=== PATIENT | female | born 1940 | race Caucasian/White ===

== ENCOUNTER → 2018-09-13 11:57 | Outpatient (CLI) | payer MEDICARE, OTHER, SELFPAY | PROVIDERS: Family Provider Internal Medicine; PCP Internal Medicine; Referring Provider Surgery; Visit Provider Surgery | DX: Z01.818 Encounter for other preprocedural examination (principal); C50.919 Malignant neoplasm of unspecified site of unspecified female breast ==

== ENCOUNTER 2020-06-24 07:40 | Outpatient (RCR) | payer MEDICARE, OTHER, SELFPAY | END 2020-06-24 23:59 | LOC: IMMUN 07:40 | PROVIDERS: PCP Internal Medicine; Referring Provider Family Medicine; Visit Provider Family Medicine | DX: Z23 Encounter for immunization (principal) | CPT/HCPCS: 0011A; 0012A ==

== ENCOUNTER 2020-09-14 21:50 | Emergency (ER) | payer MEDICARE, OTHER, SELFPAY ==
[2020-09-14 21:50] VITALS: BP 125/77; PULSE 86; RESP 18; TEMP 35.9; O2SAT 94; BMI 28.3
--- NOTE | 2020-09-14 22:08 | RAD_ITS ---
STUDY: X-RAY - RIGHT RADIUS AND ULNA REASON FOR EXAM: Female, 80 years old. BRUISING AND PAIN PROXIMAL FOREARM AFTER FALL TECHNIQUE: 2 view(s) of the forearm. COMPARISON: None. FINDINGS: There is no demonstrated soft tissue swelling. Normal visualized radius. Normal visualized ulna. There is no demonstrated acute fracture. RAD/Forearm 2 Views IMPRESSION: Normal x-ray examination of the radius and ulna. Electronically Signed: Frandy Krueger MD at 22:59 EDT , Service support ,
--- NOTE | 2020-09-14 22:20 | EDS_ITS ---
HPI History of Present Illness Chief Complaint: Laceration Onset/Context/Timing Location of pain/injuries: Left thigh Narrative Narrative: Patient presents with a laceration of the right forearm after a mechanical fall she was walking down the steps in her new shoes which caught and she caught her right hand. No other injuries. No head injury or loss of consciousness. PFSH PFS Home Medications [place]'s wort 300 mg PO DAILY 08/13/18 [History Last Taken Unknown] ginkgo biloba 120 mg PO DAILY 08/13/18 [History Last Taken Unknown] ginseng 100 mg PO DAILY 08/13/18 [History Last Taken Unknown] multivitamin 1 ea PO DAILY 08/13/18 [History Last Taken Unknown] Allergy/AdvReac Type Severity Reaction Status Date / Time No Known Allergies Allergy Verified 08/13/18 08:22 Social History Smoking Status: Former smoker ROS ROS ED ROS Narrative Past medical history: none Medications: Reviewed Social history: Noncontributory Review of systems: Musculoskeletal: Right forearm injury as in HPI Skin: Forearm laceration and contusion as in HPI Neurological: No weakness or paresthesias Hematologic: No easy bleeding or easy bruising EXAM Physical Exam Narrative Exam Narrative: Physical exam General: Patient does not appear in significant distress . Head: Normocephalic, Atraumatic Neck: No C-spine tenderness Cardiovascular: Regular rate, Regular rhythm Respiratory: No distress, CTA bilaterally Back: Nontender, Normal Inspection. Extremities: Right forearm reveals 2 small lacerations which just penetrate the dermis, there about 2 cm each. There is also some contusion in that region and very slight radial pain. Skin: As above Neurological: Normal strength and sensation Const Vital Signs: 09/14/20 21:50 Temperature 96.7 F L Temperature Source Temporal Pulse Rate 86 Respiratory Rate 18 Blood Pressure 125/77 H Blood Pressure Mean 93 Pulse Ox 94 Oxygen Delivery Method Room Air MDM MDM MDM Narrative Medical decision making narrative: Wounds were Steri-Stripped by the nurse. X-r ays unremarkable patient will be discharged in stable condition. Tetanus is up-to-date Discharge Plan Triage Chief Complaint: Laceration ED Provider: Torin Snyder Dx/Rx/DC Orders Clinical Impression: Forearm laceration, Contusion of forearm Instructions: ED Contusion, Upper Extremity, ED Laceration, Infected, Not Stitched Prescriptions: No Action multivitamin 1 EACH tablet 1 ea PO DAILY RF: 0 ginseng 100 MG capsule 100 mg PO DAILY RF: 0 [place]'s wort 300 MG capsule 300 mg PO DAILY RF: 0 ginkgo biloba 120 MG tablet 120 mg PO DAILY RF: 0 Primary Care Provider: Care Physician,No Primary Referrals: Care Physician,No Primary [Primary Care Provider] - 3-5 Days Disposition Disposition: Home, self care
[2020-09-14 23:28] VITALS: BP 128/78; PULSE 80; RESP 16; O2SAT 98
== END 2020-09-14 23:29 | disposition home or self-care (01) ==
PROVIDERS: Emergency Provider Emergency Medicine
DX: S51.811A Laceration without foreign body of right forearm, initial encounter (principal); Y93.01 Activity, walking, marching and hiking; Z87.891 Personal history of nicotine dependence
CPT/HCPCS: 73090; 99282

== ENCOUNTER 2021-02-28 10:17 | Emergency (ER) | payer MEDICARE, OTHER, SELFPAY ==
[2021-02-28 10:18] VITALS: BP 128/89; PULSE 84; RESP 16; TEMP 36.3; O2SAT 93; BMI 28.1
--- NOTE | 2021-02-28 10:29 | CT_ITS ---
STUDY: CT BRAIN WITHOUT CONTRAST REASON FOR EXAM: Female, 81 years old. injury RADIATION DOSAGE (If Supplied By Facility): CTDIvol = ( 44.99 ) mGy, DLP = ( 846.73 ) mGycm TECHNIQUE: Transaxial CT imaging of the brain was performed without administration of intravenous contrast material. Individualized dose optimization techniques were used for this CT. COMPARISON: None. FINDINGS: There is cerebral atrophy with widening of the extra-axial spaces and ventricular dilatation. There are areas of decreased attenuation within the white matter tracts of the supratentorial brain, consistent with microvascular disease changes. There is no intracranial hemorrhage. There are no findings of an acute ischemic infarction. Normal soft tissue structures. Normal visualized paranasal sinuses. CT/Brain/Head without Contrast IMPRESSION: Chronic involutional changes of the brain. Electronically Signed: Amanda Mina MD at 10:58 EST Tel , Service support ,
--- NOTE | 2021-02-28 10:30 | ED.VIS.FALL ---
HPI HPI - Fall History of Present Illness Chief Complaint: Fall Informant: patient and family Occured/Mechanism Occurred: Today Fall down steps #: 10 Pain/Injury Pain Location: face Quality of Pain: Aching Current Severity: Mild Maximum Severity: Mild Narrative Narrative: in a ponce in her shoe caught on the carpet causing her to fall.Patient presents with family after fall down approximately 10 steps at home. She was She is not on anticoagulants did not lose consciousness. She is complaining of mild pain to her right hand and pain across her nose. She denies headache, vision change, nausea, or vomiting. She denies neck pain. [facility] Medical History Back pain due to injury Hypothyroidism Multiple sclerosis Parkinson's disease Rheumatoid arthritis Stroke Home Medications [place]'s wort 300 mg PO DAILY 08/13/18 [History Last Taken Unknown] ginkgo biloba 120 mg PO DAILY 08/13/18 [History Last Taken Unknown] ginseng 100 mg PO DAILY 08/13/18 [History Last Taken Unknown] multivitamin 1 ea PO DAILY 08/13/18 [History Last Taken Unknown] levothyroxine 75 mcg PO DAILY 02/28/21 [History Last Taken Unknown] Allergy/AdvReac Type Severity Reaction Status Date / Time No Known Allergies Allergy Verified 02/28/21 10:21 Surgical History History of cholecystectomy Social History Smoking Status: Former smoker ROS ROS ED Constitutional Constitutional ED: Denies chills or fever(s) Eyes Eyes: Denies change in vision ENT ENT ED: Reports other Details: Pain across nasal bridge ; Denies sore throat Cardiovascular Cardiovascular: Denies chest pain Respiratory/Chest Respiratory/Chest: Denies cough or dyspnea Gastrointestinal Gastrointestinal: Denies abdominal pain, diarrhea, nausea or vomiting Genitourinary Genitourinary ED: Denies dysuria Musculoskeletal Musculoskeletal: Reports arthralgias; Denies back pain Integumentary Reports Abrasions Neurologic Neurologic: Denies headache(s), paresthesias or weakness Psychiatric Psychiatric: Denies anxiety or depression Allergic/Immunologic Allergic/Immunologic ED: Denies urticaria EXAM Physical Exam Const Vital Signs: 02/28/21 10:18 02/28/21 10:30 02/28/21 11:16 Temperature 97.3 F L Temperature Source Temporal Pulse Rate 84 89 Respiratory Rate 16 18 Respiratory Effort Normal Respiratory Depth Normal Respiratory Pattern Normal Blood Pressure 128/89 H Blood Pressure Mean 102 Pulse Ox 93 93 Oxygen Delivery Method Room Air Room Air Room Air Positive well nourished and well developed General Appearance ED: well developed HEENT HEENT Narrative: Superficial abrasion across the left distal lateral nose. Mild edema over the nasal bridge. Pupils equal and reactive. No tenderness over the zygoma Eyes PERRL and EOMs intact bilaterally Neck full ROM Neck Narrative: No C-spine tenderness Resp normal respiratory effort and clear to auscultation bilaterally Cardio regular rate and regular rhythm GI non-tender Palpation: soft Back/Spine Cervical Spine: Negative for cervical spine tenderness Thoracic Spine / Upper Back: Negative for thoracic spinal tenderness Extremity Extremity Narrative: Superficial abrasion to the right hand over the second metacarpal. No bony tenderness with full range of motion. Neuro oriented x3, CN's II-XII intact bilaterally, moves all extremities and no sensory deficits noted Sensorium / Orientation: alert Motor Exam: strength 5/5 throughout Psych mental status grossly normal MDM MDM MDM Narrative Medical decision making narrative: CT scan of the head was obtained. I did asked tech to scan down through nasal bridge. Radiography Diagnostic Testing: Clinical Impression(s) from Imaging Studies Brain CT 02/28/21 10:29 IMPRESSION: Chronic involutional changes of the brain. Electronically Signed: Amanda Mina MD at 10:58 EST Tel , Service support , ADDENDUM: 02/28/21 1116 Treatment and Re-Evaluation Comments:: CT scan unremarkable. No obvious fracture noted. Test results discussed with patient. Return instructions provided. Addendum: I was notified later by plumbing service technician that an addendum had been performed on the CT. Patient has nondisplaced nasal bone fractures. Nursing staff did call patient to notify of these findings. No significant change in management. Discharge Plan Triage Chief Complaint: Fall ED Provider: Yohana Duarte Dx/Rx/DC Orders Clinical Impression: Fall, Closed head injury, Contusion of nose Instructions: ED Mechanical Fall, ED Head Injury (Adult), ED Nasal Contusion Prescriptions: No Action multivitamin 1 EACH tablet 1 ea PO DAILY RF: 0 ginseng 100 MG capsule 100 mg PO DAILY RF: 0 [place]'s wort 300 MG capsule 300 mg PO DAILY RF: 0 ginkgo biloba 120 MG tablet 120 mg PO DAILY RF: 0 levothyroxine 75 mcg tablet 75 mcg PO DAILY RF: 0 Primary Care Provider: Katya Muñiz Referrals: Katya Muñiz, IRON AND STEEL WORK SUPERVISOR-C [Primary Care Provider] - As Needed Disposition Disposition: Home, Self Care Discharge Date/Time: 02/28/21 11:17
[2021-02-28 11:16] VITALS: PULSE 89; RESP 18; O2SAT 93
--- NOTE | 2021-02-28 12:51 | ED.RN ---
ATTEMPTED TO CALL TO INFORM OF ADDENDUM TO CT RESULT AND INFORM OF NON-DISPLACED NASAL FRACTURE. NO ANSWER AND VM BOX IS NOT SET UP TO LEAVE A MESSAGE
== END 2021-02-28 11:17 | disposition home or self-care (01) ==
PROVIDERS: Emergency Provider Emergency Medicine; PCP Nurse Practitioner Family
DX: S09.90XA Unspecified injury of head, initial encounter (principal); S00.33XA Contusion of nose, initial encounter; W10.9XXA Fall (on) (from) unspecified stairs and steps, initial encounter; Z87.891 Personal history of nicotine dependence
CPT/HCPCS: 70450; 99282

== ENCOUNTER 2022-01-06 18:36 | Emergency (ER) | payer MEDICARE, OTHER, SELFPAY ==
[2022-01-06 18:39] VITALS: BP 83/67; PULSE 97; RESP 16; TEMP 37.1; O2SAT 96; BMI 26.9
[2022-01-06 20:15] VITALS: BP 137/86; PULSE 88; RESP 16; O2SAT 94
--- NOTE | 2022-01-06 21:17 | EDS_ITS ---
HPI History of Present Illness Chief Complaint: Other, Pain/Inj Informant: patient Onset/Context/Timing Onset: Weeks (2) Context: Sudden Onset Timing: Intermittent Quality: Spasm, charley horse Location: Neck, bilateral legs, bilateral arms Worsened by: Sleeping, sitting Relieved by: Nothing Narrative Narrative: Patient presents with pain. Patient states it has been intermittent over the last 2 weeks. Patient states it feels like she has a giant charley horse. Patient states it starts in her neck and goes into both legs and both arms. Patient states it is worse whenever she wakes up in the morning. Patient states it is also worse with prolonged sitting. Patient states she feels like she has spasms in her arms and legs. Patient admits to an episode of nausea and vomiting today. Patient also admits to some pain in her back. [facility] Medical History Arthritis Breast cancer Hypothyroidism Stroke Home Medications [place] wort 300 mg capsule 300 mg PO DAILY 08/13/18 [History Last Taken Unknown] ginkgo biloba 120 mg tablet 120 mg PO DAILY 08/13/18 [History Last Taken Unknown] ginseng 100 mg capsule 100 mg PO DAILY 08/13/18 [History Last Taken Unknown] multivitamin 1 ea PO DAILY 08/13/18 [History Last Taken Unknown] levothyroxine 75 mcg tablet 75 mcg PO DAILY 02/28/21 [History Last Taken Unknown] calcium citrate 500 mg (2,376 mg) effervescent tablet 500 mg PO DAILY 01/06/22 [History Last Taken Unknown] cephalexin 500 mg capsule 500 mg PO Q6 #20 CAPSULES 01/06/22 [Rx Last Taken Unknown] cholecalciferol (vitamin D3) 125 mcg (5,000 unit) tablet (Vitamin D3) 125 mcg PO DAILY 01/06/22 [History Last Taken Unknown] cyanocobalamin (B12)-cobamamide 5,000 mcg-100 mcg sublingual lozenge (B12) 500 kiley sublingual 01/06/22 [History Last Taken Unknown] echinacea 400 mg capsule 400 mg PO DAILY 01/06/22 [History Last Taken Unknown] ferrous sulfate 325 mg (65 mg iron) tablet (Iron (ferrous sulfate)) 325 mg PO DAILY 01/06/22 [History Last Taken Unknown] josh root extract 50 mg tablet mg PO 01/06/22 [History Last Taken Unknown] goldenseal root 250 mg tablet 400 mg PO 01/06/22 [History Last Taken Unknown] yamil héctor (Centella asiatica) 441 mg capsule 950 PO 01/06/22 [History Last Taken Unknown] lutein 20 mg capsule 20 mg PO DAILY 01/06/22 [History Last Taken Unknown] tramadol 50 mg tablet 50 mg PO BID PRN Pain 01/06/22 [History Last Taken Unknown] vitamin E 400 unit tablet 45 mg PO DAILY 01/06/22 [History Last Taken Unknown] Allergy/AdvReac Type Severity Reaction Status Date / Time No Known Allergies Allergy Verified 01/06/22 18:41 Surgical History History of cholecystectomy Social History Smoking Status: Former smoker ROS ROS ED Constitutional Constitutional ED: Denies chills or fever(s) Eyes Eyes: Denies blurry vision or change in vision ENT ENT ED: Denies rhinorrhea or sore throat Cardiovascular Cardiovascular: Denies chest pain or palpitations Respiratory/Chest Respiratory/Chest: Denies cough or dyspnea Gastrointestinal Gastrointestinal: Reports nausea and vomiting Genitourinary Genitourinary ED: Denies dysuria or hematuria Musculoskeletal Musculoskeletal: Reports back pain and neck pain Integumentary Denies abscess or rash Neurologic Neurologic: Denies headache(s) or weakness Allergic/Immunologic Allergic/Immunologic ED: Denies mouth swelling or urticaria EXAM Physical Exam Const Vital Signs: 01/06/22 18:39 01/06/22 20:01 01/06/22 20:15 Temperature 98.8 F Temperature Source Temporal Pulse Rate 97 88 Respiratory Rate 16 16 Respiratory Effort Normal Respiratory Pattern Normal Blood Pressure 83/67 L 137/86 H Blood Pressure Mean 72 103 Pulse Ox 96 94 Oxygen Delivery Method Room Air Room Air Positive well nourished and well developed General Appearance ED: well developed and NAD HEENT Reports moist mucous membranes Neck supple and no JVD Neck Narrative: There is mild tenderness over the cervical paraspinal muscles. There is no bony crepitance or step-off. Range of motion was limited in all motions of the cervical spine secondary to pain and spasm. General: tenderness Resp normal respiratory effort and clear to auscultation bilaterally Cardio regular rate, regular rhythm and no murmurs GI normal to inspection, nondistended, normoactive bowel sounds and non-tender Palpation: soft Extremity normal to inspection Extremity Narrative: There is pain with active and passive range of motion of the left upper extremity. There is no deformity noted. There is no edema or ecchymosis. There is no evidence of any trauma. General Extremety ED: Negative for edema General Extremity: Negative for edema Neuro oriented x3, CN's II-XII intact bilaterally and no sensory deficits noted Sensorium / Orientation: alert Motor Exam: strength 5/5 throughout Psych mental status grossly normal Skin no rashes or lesions noted MDM MDM MDM Narrative Medical decision making narrative: CBC was within normal limits. Comprehensive metabolic profile was within normal limits. Lactate was normal. Total CK was normal. Urinalysis shows a leukocyte esterases of 500 with 10-25 white blood cells and 3+ bacteria. Urine culture wa s ordered. CT scan of the brain was obtained. There is no acute intracranial abnormality noted. This was interpreted by the radiologist and reviewed by myself. CT scan of the cervical spine was obtained. There are degenerative changes noted. There is no acute fracture or spondylolisthesis. This was interpreted by the radiologist and reviewed by myself. Patient was advised of her findings. Patient was given a dose of Keflex here. Patient was given a prescription for Keflex. Patient was instructed to drink plenty of fluids. Patient was instructed to follow-up with her primary care physician in 5 to 7 days. Patient understood and was agreeable with the plan. All questions were answered. Lab Data Attestation: I reviewed the patient's lab results. Labs: Laboratory Results - last 24 hr 01/06/22 01/06/22 01/06/22 22:00 22:00 22:00 WBC 7.5 RBC 4.35 Hgb 13.3 Hct 40.6 MCV 93.3 MCH 30.6 MCHC 32.8 RDW Std Deviation 43.7 RDW Coeff of Bharat 12.7 Plt Count 297 MPV 9.8 Immature Gran % (Auto) 0.300 Neut % (Auto) 57.3 Lymph % (Auto) 30.2 [place] % (Auto) 11.3 H Eos % (Auto) 0.5 Baso % (Auto) 0.4 Absolute Neuts (auto) 4.3 Absolute Lymphs (auto) 2.28 Nucleated RBC % 0 Sodium 139 Potassium 3.8 Chloride 102 Carbon Dioxide 26.0 Anion Gap 11 BUN 13 Creatinine 0.75 Estim Creat Clear Calc 42.00 Est GFR (MDRD) Af Amer 95 Est GFR (MDRD) Non-Af 79 BUN/Creatinine Ratio 17.3 Glucose 106 Lactic Acid 1.3 Calcium 10.5 H Total Bilirubin 0.60 AST 34 ALT 35 Alkaline Phosphatase 129 H Total Creatine Kinase 92 Total Protein 7.6 Albumin 3.7 Globulin 3.9 Albumin/Globulin Ratio 0.9 Urine Color Urine Clarity Urine pH Ur Specific [place] Urine Protein Urine Glucose (UA) Urine Ketones Urine Occult Blood Urine Nitrite Urine Bilirubin Urine Urobilinogen Ur Leukocyte Esterase Urine RBC Urine WBC Ur Squamous Epith Cells Urine Bacteria Urine Mucus 01/06/22 22:00 WBC RBC Hgb Hct MCV MCH MCHC RDW Std Deviation RDW Coeff of Bharat Plt Count MPV Immature Gran % (Auto) Neut % (Auto) Lymph % (Auto) [place] % (Auto) Eos % (Auto) Baso % (Auto) Absolute Neuts (auto) Absolute Lymphs (auto) Nucleated RBC % Sodium Potassium Chloride Carbon Dioxide Anion Gap BUN Creatinine Estim Creat Clear Calc Est GFR (MDRD) Af Amer Est GFR (MDRD) Non-Af BUN/Creatinine Ratio Glucose Lactic Acid Calcium Total Bilirubin AST ALT Alkaline Phosphatase Total Creatine Kinase Total Protein Albumin Globulin Albumin/Globulin Ratio Urine Color Yellow Urine Clarity Clear Urine pH 6.0 Ur Specific [place] 1.015 Urine Protein Negative Urine Glucose (UA) Normal Urine Ketones 15 H Urine Occult Blood 10 H Urine Nitrite Positive H Urine Bilirubin Negative Urine Urobilinogen Normal Ur Leukocyte Esterase 500 H Urine RBC 0-5 SEEN Urine WBC 10-25 SEEN Ur Squamous Epith Cells 0-5 SEEN Urine Bacteria 3+ Urine Mucus 0 SEEN Radiography Diagnostic Testing: Clinical Impression(s) from Imaging Studies Brain CT 01/06/22 21:20 IMPRESSION: Mild involutional changes. There is no acute intracranial pathology. There is no significant interval change. Electronically Signed: Aixa Albrecht MD at 23:02 EDT Reading Location ID and State: , Service support , Cervical Spine CT 01/06/22 21:22 IMPRESSION: Multilevel degenerative changes, as described above. There is straightening of the normal lordotic curve, a nonspecific finding, which may be due to positioning or which might be due to muscle spasm. Mild osteopenia. There is no acute displaced fracture or dislocation. Electronically Signed: Aixa Albrecht MD at 23:06 EDT Reading Location ID and State: , Service support , Discharge Plan Triage Chief Complaint: Other, Pain/Inj ED Provider: Rakesh Torres Dx/Rx/DC Orders Clinical Impression: Urinary tract infection, Muscle spasm Instructions: ED Cystitis Female Adult Prescriptions: New cephalexin [cephalexin] 500 MG capsule 500 mg PO Q6 Qty: 20 0RF No Action multivitamin 1 EACH tablet 1 ea PO DAILY ginseng 100 MG capsule 100 mg PO DAILY [place] wort 300 MG capsule 300 mg PO DAILY ginkgo biloba 120 MG tablet 120 mg PO DAILY levothyroxine 75 mcg tablet 75 mcg PO DAILY Gotu Héctor 441 mg Capsule 950 PO tramadol 50 mg Tablet 50 mg PO BID PRN (Reason: Pain) vitamin E 400 unit Tablet 45 mg PO DAILY cholecalciferol (vitamin D3) [Vitamin D3] 125 mcg (5,000 unit) Tablet 125 mcg PO DAILY goldenseal root 250 mg Tablet 400 mg PO echinacea 400 mg Capsule 400 mg PO DAILY Rx Instructions: administer with meals calcium citrate 500 mg Tablet, Effervescent 500 mg PO DAILY lutein 20 mg Capsule 20 mg PO DAILY Rx Instructions: give with meal/snack B12 5,000-100 mcg Lozenge 500 kiley SUBLINGUAL ferrous sulfate [Iron (ferrous sulfate)] 325 mg (65 mg iron) Tablet 325 mg PO DAILY josh root extract 50 mg Tablet PO Primary Care Provider: Katya Muñiz Referrals: Katya Muñiz, PROGRAMMER ANALYST CONSULTANT-C [Primary Care Provider] - 3-5 Days Disposition Disposition: Home, Self Care
--- NOTE | 2022-01-06 21:20 | CT_ITS ---
STUDY: CT BRAIN WITHOUT CONTRAST REASON FOR EXAM: Female, 82 years old. Headache RADIATION DOSAGE (If Supplied By Facility): CTDIvol = ( 44.99 ) mGy, DLP = ( 779.24 ) mGycm TECHNIQUE: Transaxial CT imaging of the brain was performed without administration of intravenous contrast material. Individualized dose optimization techniques were used for this CT. COMPARISON: CT brain noncontrast 02/28/2021 FINDINGS: Normal soft tissue structures. Normal calvarium. Normal size ventricles and extra-axial spaces for the patient''s age. There are areas of decreased attenuation within the white matter tracts of the supratentorial brain, consistent with microvascular disease changes. Normal basal ganglia and thalami. Normal brainstem. Normal cerebellum. There is no intracranial hemorrhage. There are no findings of an acute ischemic infarction. Normal visualized paranasal sinuses. The bilateral mastoid air cells and ossicles are unopacified. CT/Brain/Head without Contrast IMPRESSION: Mild involutional changes. There is no acute intracranial pathology. There is no significant interval change. Electronically Signed: Aixa Albrecht MD at 23:02 EDT Reading Location ID and State: , Service support ,
--- NOTE | 2022-01-06 21:22 | CT_ITS ---
STUDY: CT CERVICAL SPINE WITHOUT CONTRAST REASON FOR EXAM: Female, 82 years old. Injury/Pain RADIATION DOSAGE (If Supplied By Facility): CTDIvol = ( 17.54 ) mGy, DLP = ( 344.88 ) mGycm TECHNIQUE: High resolution transaxial imaging was performed without contrast material. Sagittal and coronal images were reconstructed. Individualized dose optimization techniques were used for this CT. COMPARISON: None FINDINGS: Normal craniovertebral junction. Normal anterior atlantoaxial articulation. Normal odontoid process. 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 There is straightening of the normal cervical lordosis. Demineralized vertebral bodies and posterior osseous elements. Sclerosis of endplates, disc space narrowing, arthropathy of the uncovertebral joints, mild neuroforamina narrowing right C3-C6. No spinal canal stenosis. There is no demonstrated pneumothorax. CT/Spine Cervical without Contras IMPRESSION: Multilevel degenerative changes, as described above. There is straightening of the normal lordotic curve, a nonspecific finding, which may be due to positioning or which might be due to muscle spasm. Mild osteopenia. There is no acute displaced fracture or dislocation. Electronically Signed: Aixa Albrecht MD at 23:06 EDT Reading Location ID and State: , Service support ,
[2022-01-06 22:20] LABS: Mucous, Urine 0 SEEN /hpf (<or=2+)
[2022-01-06 22:21] LABS: Absolute Lymphocyte Count 2.28 X10^3/uL (0.83-4.51); Absolute Neutrophil Count 4.3 X10^3/uL (2.0-7.7); Basophil# 0.03 X10^3/uL; Basophil% 0.4 % (0-1); Color, Urine Yellow (Yellow); Eosinophil# 0.04 X10^3/uL; Eosinophils% 0.5 % (0-5); Glucose, Dipstick Normal (Normal); Hematocrit 40.6 % (37-47); Hemoglobin 13.3 g/dL (12.0-15.0); Ketone-Dipstick 15 mg/dl (Negative); Leukocyte Esterase-Dipstick 500 /ul (Negative); Lymphocyte # 2.28 X10^3/ul (0.83-4.51); Lymphocyte % 30.2 % (19-41); Mean Corp Hgb Conc 32.8 g/dL (32-36); Mean Corpuscular Hgb 30.6 pg (27.0-32.0); Mean Corpuscular Volume 93.3 fL (81-99); Mean Platelet Vol. 9.8 fl (6.2-12.0); Monocyte# 0.85 X10^3/uL; Monocyte% 11.3 % (0-10); NRBC Flagged by Analyzer 0 % (0-5); Neutrophil # 4.32 X10^3/uL (2.7-7.7); Neutrophil % 57.3 % (47-70); Nitrite-Dipstick Positive (Negative); Occult Blood-Urine 10 /ul (Negative); Platelet Count 297 K/mm3 (150-450); Protein-Dipstick Negative (Negative); RBC Distribution Width CV 12.7 % (11.6-14.6); RBC Distribution Width SD 43.7 fl (35.1-43.9); Red Blood Count 4.35 M/mm3 (4.2-5.4); Specific Gravity, Urine 1.015 (1.002-1.030); Urine Bilirubin Dipstick Negative (Negative); Urine Clarity Clear (Clear); Urine Urobilinogen Normal (Normal); White Blood Count 7.5 K/mm3 (4.4-11.0)
[2022-01-06 22:38] LABS: Bacteria 3+ /hpf (None Seen); Red Blood Cells-Urine 0-5 SEEN /hpf (0-5); White Blood Cells 10-25 SEEN /hpf (0-5)
[2022-01-06 22:39] LABS: Squamous Epithelial Cells - UA 0-5 SEEN /hpf (5-10)
[2022-01-06 22:52] LABS: ALB/GLOB Ratio 0.9 RATIO (0.9-2.4); AST(SGOT) 34 U/L (15-37); Alanine Aminotransfer ALT/SGPT 35 U/L (13-56); Albumin, Serum 3.7 g/dL (3.2-5.0); Alkaline Phosphatase 129 U/L (45-117); Anion Gap 11 (5-15); BUN 13 mg/dL (7-18); BUN/Creat Ratio 17.3 RATIO (10-20); CPK Total, Creatine Kinase 92 U/L (26-192); Calcium,Total 10.5 mg/dL (8.5-10.1); Chloride 102 mmol/L (98-107); Creatinine, Serum 0.75 mg/dL (0.55-1.02); EST Glomerular Filtration Rate 79 mL/min (>60); Est Glom Filt Rate - Afr Amer 95 mL/min (>60); Globulin 3.9 g/dL (2.2-4.2); Glucose 106 mg/dL (74-106); Potassium 3.8 mmol/L (3.5-5.1); Protein, Total 7.6 g/dL (6.4-8.2); Sodium Level 139 mmol/L (136-145)
[2022-01-06 22:58] LABS: Lactic Acid 1.3 mmol/L (0.4-1.9)
[2022-01-07] MEDS: Cephalexin 500 MG Capsule PO (00:01)
== END 2022-01-07 00:15 | disposition home or self-care (01) ==
PROVIDERS: Emergency Provider Emergency Medicine; PCP Nurse Practitioner Family; Visit Provider Emergency Medicine
DX: N39.0 Urinary tract infection, site not specified (principal); M62.831 Muscle spasm of calf; E03.9 Hypothyroidism, unspecified; Z87.891 Personal history of nicotine dependence; Z79.899 Other long term (current) drug therapy
CPT/HCPCS: 70450; 72125; 80053; 81001; 82550; 83605; 85025; 87086; 87088; 87186; 99284